=== PATIENT | male | born 1970 | race Two or more races ===

== ENCOUNTER 2018-01-11 07:19 | Day surgery (SDC) | payer OTHER ==
[2018-01-11] VITALS (11 sets, daily range): BP systolic 104–119; BP diastolic 51–68
[~2018-01-11] VITALS: Ht 185.4 cm; Wt 87.1 kg
[~2018-01-11 07:19] MED LIST: NKM; ceFAZolin 1gm IVPB IVPB ONE; celeBREX 200mg Cap **SURGERY PATIENTS ONLY ORAL ONE; oxyCONTIN 20mg tab ORAL ONE
--- NOTE | 2018-01-11 07:39 | Pre-Procedure Note/Attestation ---
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 I attest that, if there was a reasonable possibility of needing a blood transfusion, the patient (or the patient's legal customer support representative) was given the [facility] standardized written summary, pursuant to the Damien Tracey Blood Safety Act ([place] Health and Safety Code # 1645, as amended). I attest that I re-evaluated the patient just prior to the surgery and that there has been no change in the patient's H&P, except as documented below: Giuseppe Douglas MD Jan 11, 2018 07:39
--- NOTE | 2018-01-11 07:39 | Operative Note - PDOC ---
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
[2018-01-11] MEDS ORDERED: HYDROmorphone 1mg/ml Carpuject SUBQ PRN (07:45)
[2018-01-11] MEDS ORDERED: D5 1/2NS 1,000 ML IV SCH (07:45)
[2018-01-11] MEDS ORDERED: Tylenol #3 tab (300mg/30mg) ORAL PRN (07:45)
[2018-01-11] MEDS ORDERED: Propofol 200mg/20ml IV ONE (09:57)
[2018-01-11] MEDS ORDERED: Ketorolac 30mg Inj ONE (09:57)
[2018-01-11] MEDS ORDERED: Metoclopramide 10mg/2ml Inj ONE (09:57)
[2018-01-11] MEDS ORDERED: fentaNYL 100 mcg/2 mL IV ONE (09:57)
[2018-01-11] MEDS ORDERED: Lidocaine 1% MPF 10mg/ml 5ml ONE ×2 (09:57→11:26)
[2018-01-11] MEDS ORDERED: Bupivacaine 0.5% Inj 30 ml vial INJ ONE (09:58)
[2018-01-11] MEDS ORDERED: Sterile Water Irrig 1000ml IRRIG ONE (10:00)
[2018-01-11] MEDS ORDERED: fentaNYL 100 mcg/2 mL IV PRN (10:00)
[2018-01-11] MEDS ORDERED: NS Irrig 1000ml ONE (10:00)
[2018-01-11] MEDS ORDERED: LR 1000ml ONE (10:00)
--- NOTE | 2018-01-11 10:00 | Anethesia Preoperative Eval ---
Anesthesia Pre-op PMH/ROS General Date of Evaluation: Jan 11, 2018 Time of Evaluation: 09:59 Anesthesiologist: wilbur ASA Score: ASA 2 Mallampati Score Class I : Soft palate, uvula, fauces, pillars visible Class II: Soft palate, uvula, fauces visible Class III: Soft palate, base of uvula visible Class IV: Only hard plate visible Mallampati Classification: Class I Surgeon: crow Diagnosis: carpal tunnel syndrome Surgical Procedure: carpal tunnel relese Anesthesia History: none Family History: no anesthesia problems Allergies: Coded Allergies: No Known Allergies (Unverified , 01/11/18) Medications: see eMAR Patient NPO?: Yes NPO Date: Jan 10, 2018 Past Medical History Cardiovascular: Denies: HTN, CAD, [place], valve dz, arrhythmia, other Pulmonary: Denies: asthma, COPD, CATY, other Gastrointestinal/Genitourinary: Denies: GERD, CRI, ESRD, other Neurologic/Psychiatric: Denies: dementia, CVA, depression/anxiety, TIA, other Endocrine: Denies: DM, hypothyroidism, steroids, other HEENT: Denies: cataract (L), cataract (R), glaucoma, [place] (L), [place] (R), other Hematology/Immune: Denies: anemia, DVT, bleeding disorder, other Musculoskeletal/Integumentary: Denies: OA, RA, DJD, DDD, edema, other PSxH Narrative: none Anesthesia Pre-op Phys. Exam Physician Exam Last Vital Signs Date Time Temp Pulse Resp B/P (MAP) Pulse Ox O2 Delivery O2 Flow Rate FiO2 01/11/18 08:02 Room Air 01/11/18 07:45 97.4 58 18 119/66 98 Constitutional: NAD Neurologic: CN 2-12 intact Cardiovascular: RRR Respiratory: CTA Airway Exam Mallampati Classification 2 Mallampati Score: Class II MO: full Neck: thick ROM: full Dentures: no upper, no lower Anesthesia Pre-op A/P Studies Pre-op Studies: EKG - sr Risk Assessment & Plan Plan: general plus peripheral nerve block Status Change Before Surgery: No Pre-Antibiotics Drug: ancef Given Within 1 Hr of Incision: Yes Time Given: 10:10 Anupama Thomas CRNA Jan 11, 2018 10:00
[2018-01-11] MEDS ORDERED: ePHEDrine 50mg/ml Inj ONE (10:56)
--- NOTE | 2018-01-11 11:25 | Immediate Post-Op Evaluation ---
Immediate Post-Op Evalulation Immediate Post-Op Evalulation Procedure: right carpal tunnel Date of Evaluation: Jan 11, 2018 Time of Evaluation: 11:25 IV Fluids: 600 Blood Pressure Systolic: 102 Blood Pressure Diastolic: 66 Pulse Rate: 61 Respiratory Rate: 14 O2 Sat by Pulse Oximetry: 100 Temperature (Fahrenheit): 97.5 Nausea: No Vomiting: No Complications none Patient Status: awake, reacts, patent Hydration Status: adequate Drug: ancef Given Within 1 Hr of Incision: Yes Time Given: 10:10 Anupama Thomas CRNA Jan 11, 2018 11:25
[2018-01-11] MEDS ORDERED: Norco 5mg/325mg tab ONE (12:52)
[2018-01-11] MEDS ORDERED: Norco 5mg/325mg tab ORAL PRN (13:00)
--- NOTE | 2018-01-11 14:55 | 48 Hour Post Anesthesia Eval ---
Post Anesthesia Evaluation Procedure: right carpal tunnel release Date of Evaluation: Jan 11, 2018 Time of Evaluation: 14:55 Blood Pressure Systolic: 105 0: 51 Pulse Rate: 55 Respiratory Rate: 14 O2 Sat by Pulse Oximetry: 98 Airway: patent Nausea: No Vomiting: No Pain Intensity: 5 Hydration Status: adequate Cardiopulmonary Status: stable Mental Status/LOC: patient returned to baseline Follow-up Care/Observations: na Post-Anesthesia Complications: none Follow-up care needed: N/A Anupama Thomas [facility] Jan 11, 2018 14:55
--- NOTE | 2018-01-11 18:00 | Operative Note - Dictated ---
DATE OF OPERATION: 01/11/2018 PREOPERATIVE DIAGNOSES: 1. Right cubital tunnel syndrome. 2. Right carpal tunnel syndrome. POSTOPERATIVE DIAGNOSES: 1. Right cubital tunnel syndrome. 2. Right carpal tunnel syndrome. PROCEDURES: 1. Right ulnar nerve decompression. 2. Carpal tunnel release. SURGEON: Giuseppe Douglas M.D. ANESTHESIA: MAC with axillary block. INDICATION FOR PROCEDURE: The patient is a pleasant gentleman, who has had progressive median pain down the forearm and wrist. He had diagnoses of cubital tunnel syndrome and carpal tunnel syndrome, which was refractory to conservative measures elected to undergo decompression of ulnar nerve as well as carpal tunnel. Risks, limitations, expectations, and complications of procedure were discussed in detail including infection, nerve vessel damage, need for future surgery, continued symptomology, possible neuroma, seroma, hematoma, and risk of anesthesia. All questions were addressed. DESCRIPTION OF PROCEDURE: After informed consent was obtained, the patient was brought to the operating room. The patient was placed under general anesthesia. Tourniquet was applied to the right proximal arm. Right arm was prepped and draped in a sterile manner. Time-out was performed. At this point, we used to exsanguinate the extremity. The medial epicondyle was identified. A 2 cm incision proximal distal posterior to the medial epicondyle was marked out. The skin was incised. Blunt dissection down to the Henderson's ligament was performed. Once Henderson's ligament was identified, it was released along the cubital tunnel. The ulnar nerve was then identified. At this point, care was taken once the nerve was identified to create subcutaneous fascial layers using a freer and Metzenbaum scissors. Once adequate soft tissue compartment both proximally and distally to the cubital tunnel was performed using direct visualization, the flexor carpi ulnaris tendon was released distally. Care was taken to make sure that the ulnar nerve distal was completely released. Once that was done, similarly freer along with the scissor was then used to create a subcutaneous flap proximally. Once adequate soft tissue planes were created using direct visualization, cubital tunnel and C2 decompression on the nerve was carried out proximally. Once that was done, already elbow was moved through range of motion. There is no gross subluxation of the ulnar necessitating additional surgery. At this point, the wound was copiously irrigated. The skin was approximated using 4-0 Monocryl sutures. Dermabond dressing was applied. Attention was turned to the carpal tunnel. The thenar crease was marked out. The skin was incised. The palmar fascia was dissected out the transverse carpal tunnel. Transverse carpal was then incised longitudinal. Once the carpal tunnel was entered, blunt Metzenbaum scissors was then used to release the tunnel proximally and distally using direct visualization. Once that was done, the skin was approximated using 4-0 nylon suture, Steri-Strips. Compression dressing was applied. The patient was awoken and taken to recovery room with stable vital signs. ESTIMATED BLOOD LOSS: None. COMPLICATIONS: None. SPECIMENS: None. IMPLANTS: None. Giuseppe Douglas M.D. DR: CHRISTIANE JOB#: [id number] CC: ANDREW
== END 2018-01-11 14:45 | disposition home or self-care (01) ==
LOC: SUR 07:19
DX: G56.01 Carpal tunnel syndrome, right upper limb (principal); G56.21 Lesion of ulnar nerve, right upper limb; F17.200 Nicotine dependence, unspecified, uncomplicated
CPT/HCPCS: 64718; 64721; J0690; J1885; J2405; J2704; J2765; J3010; J3490

== ENCOUNTER 2020-01-13 09:48 | Outpatient (CLI) | payer MEDICAID ==
[~2020-01-13 09:48] MED LIST changes: -ceFAZolin 1gm IVPB IVPB ONE; -celeBREX 200mg Cap **SURGERY PATIENTS ONLY ORAL ONE; -oxyCONTIN 20mg tab ORAL ONE
--- NOTE | 2020-01-13 10:44 | Consultation ---
DATE OF CONSULTATION: 01/13/2020 CHIEF COMPLAINT: Referral for colonoscopy. PAST MEDICAL HISTORY: None. PAST SURGICAL HISTORY: None. MEDICATIONS: Supplements. ALLERGIES: No known allergies. FAMILY HISTORY: pancreatic and colon cancer. SOCIAL HISTORY: The patient is a social drinker, drinks 2 drinks per week. Tobacco use, few cigarettes per day. No IV drug abuse. REVIEW OF SYSTEMS: Negative. PHYSICAL EXAMINATION: VITAL SIGNS: Temperature 97.2. Vital signs stable. Weight is 214. HEENT: Normocephalic and atraumatic. Sclerae anicteric. NECK: Supple. No evidence of obvious lymphadenopathy. CARDIOVASCULAR: Regular rate and rhythm. Plus S1, S2. LUNGS: Clear to auscultation bilaterally. ABDOMEN: Positive bowel sounds. Soft and nontender. No rebound. No guarding. No peritoneal sign. EXTREMITIES: No cyanosis, no clubbing, no edema. ASSESSMENT AND PLAN: This is a 49-year-old male, referred for screening colonoscopy. The patient was given instruction for colonoscopy. Risks and benefits of procedure was explained to him. We will schedule him as soon as authorization is obtained. Tommy Ladd M.D. DR: Azul JOB#: [id number] CC:
== END 2020-01-13 11:48 | disposition home or self-care (01) ==
LOC: PAN 09:48
DX: Z00.00 Encounter for general adult medical examination without abnormal findings (principal); Z80.0 Family history of malignant neoplasm of digestive organs; Z80.8 Family history of malignant neoplasm of other organs or systems; F17.210 Nicotine dependence, cigarettes, uncomplicated
CPT/HCPCS: G0463